=== PATIENT | male | born 1990 | race African-American/Black ===

== ENCOUNTER 2016-07-11 02:15 | Emergency (ER) | payer OTHER ==
[2016-07-11 02:22] VITALS: BP 145/92
[2016-07-11 02:42] LABS: BILIRUBIN,URINE NEGATIVE (NEGATIVE); UA CHARGE (STRIP ONLY) YES; UR CULTURE IF IND NOT INDICATED
[2016-07-11] MEDS ORDERED: AZITHROMYCIN 250 MG TABLET PO STA (03:01)
[2016-07-11] MEDS ORDERED: cefTRIAXone 250 MG VIAL IM STA (03:01)
--- NOTE | 2016-07-11 03:04 | ED Physician Documentation ---
PD HPI MALE - Stated complaint Stated Complaint: MALE - Chief complaint Chief Complaint: Abd Pain - History obtained from History obtained from: Patient - History of Present Illness Timing - onset: Today Timing - duration: Hours Timing - details: Gradual onset, Still present Associated symptoms: Dysuria. No: Discharge, Genital sore / lesion, Testiclar pain, Scrotal swelling, Back pain PD HPI MALE CONTRIB FACTORS: Sexually active (single partner X 3 months.) Similar symptoms before: Diagnosis (urethritis) Recently seen: Not recently seen - Additional information Additional information: 26 y/o male has had symptoms today of urinary pain. He drank extra fluid and this improved only to hurt again this evening. He has a single partner and does not suspect STD. He denies recent anal intercourse. Review of Systems Constitutional: denies: Fever, Chills, Myalgias, Fatigue : reports: Dysuria. denies: Frequency, Hesitancy, Unable to Void, Incontinent , Hematuria, Discharge, Testicular pain, Testicular mass Skin: denies: Rash Musculoskeletal: denies: Neck pain, Back pain, Extremity pain PD PAST MEDICAL HISTORY - Past Surgical History Past Surgical History: No - Present Medications Home Medications: Ambulatory Orders Medication Instructions Recorded Confirmed No Known Home Medications [No 07/11/16 07/11/16 Known Home Medications] - Allergies Allergies/Adverse Reactions: Allergies Allergy/AdvReac Type Severity Reaction Status Date / Time iodine AdvReac Unknown Unknown Verified 06/03/14 23:00 - Social History Does the pt smoke?: No Smoking Status: Never smoker Does the pt drink ETOH?: Yes Does the pt have substance abuse?: No - Immunizations Immunizations are current?: Yes - POLST Patient has POLST: No PD ED PE NORMAL - Vitals Vital signs reviewed: Yes (hypertensive ) - General General: Alert and oriented X 3, No acute distress, Well developed/nourished - HEENT HEENT: Atraumatic, PERRL - Respiratory Respiratory: No respiratory distress - Male Male : Other (There is no discharge or erythema to the portion of the urethra visible on exam. There are no leasions no adenopathy and no testicular tenderness. ) - Derm Derm: Normal color, Warm and dry, No rash - Extremities Extremities: No deformity, No edema - Neuro Neuro: No motor deficit, No sensory deficit - Psych Psych: Normal mood, Normal affect Results - Vitals Vitals: Vital Signs - 24 hr 07/11/16 02:18 Temperature 36.6 C Heart Rate 73 Respiratory 16 Rate Blood Pressure 145/92 H O2 Saturation 98 Oxygen O2 Source Room air - Labs Labs: Laboratory Tests 07/11/16 02:40 Urine Color LT. YELLOW Urine Clarity CLEAR Urine pH 7.0 Ur Specific [place] <=1.005 Urine Protein NEGATIVE Urine Glucose (UA) NEGATIVE Urine Ketones NEGATIVE Urine Occult Blood NEGATIVE Urine Nitrite NEGATIVE Urine Bilirubin NEGATIVE Urine Urobilinogen 0.2 (NORMAL) Ur Leukocyte Esterase NEGATIVE Ur Microscopic Review NOT INDICATED Urine Culture Comments NOT INDICATED PD MEDICAL DECISION MAKING - ED course Complexity details: considered differential, d/w patient ED course: 26 y/o male with urethral symptoms again without suspicion of STD is treated for STD after a urethral swab is obtained. The prior visits were with urine tests. He is given zithromax 1gm PO and rocephin 250mg IM. Departure - Departure Disposition: 01 Home, Self Care Clinical Impression: Urethritis Instructions: ED Urethritis Infec Vs Inflam Male Follow-Up: DANIE García [Provider Group] Comments: Today you have been treated for STD. A culture is pending and results will be available in 2 days. Today in the Emergency Department your blood pressure was elevated. This can happen from the stress of the visit itself, from a current illness or circumstance or from uncontrolled hypertension. If you take blood pressure medications take your usual mediations, have your blood pressure re-checked in an appropriate setting and follow up any elevation with your primary care doctor.
[2016-07-11] MEDS ORDERED: AZITHROMYCIN 250 MG TABLET PO ONE (03:06)
[2016-07-11] MEDS ORDERED: LIDOCAINE 1% 2 ML VIAL ONE (03:07)
[2016-07-11] MEDS ORDERED: cefTRIAXone 250 MG VIAL ONE (03:07)
== END 2016-07-11 03:16 | disposition home or self-care (01) ==
LOC: ED 02:15
DX: N34.2 Other urethritis (principal)
CPT/HCPCS: 81003; 96372; 99283; A9270; 81001; 87086; 87491; 87591

== ENCOUNTER 2016-07-13 00:48 | Emergency (ER) | payer OTHER ==
[2016-07-13 00:54] VITALS: BP 143/99
[2016-07-13 02:14] LABS: BILIRUBIN,URINE NEGATIVE (NEGATIVE)
[2016-07-13 02:18] LABS: UA CHARGE (STRIP ONLY) YES; UR CULTURE IF IND NOT INDICATED
--- NOTE | 2016-07-13 04:04 | ED Physician Documentation ---
PD HPI MALE - Stated complaint Stated Complaint: MALE - Chief complaint Chief Complaint: General - History obtained from History obtained from: Patient - History of Present Illness Timing - onset: How many days ago (2-3) Timing - details: Abrupt onset, Intermittant Associated symptoms: Dysuria. No: Urinary frequency, Discharge Similar symptoms before: Diagnosis (urethritis) Recently seen: Emergency Dept (T+R for same symptoms 07/11/16, given IM ceftriaxone and PO zithromax, his UA was unremarkable as was his GC/C. returns due to worsening of symptoms; he has burning, only with urination, initially was towards end of urination but now throughtout urination and persists for several minutes afterwards) Review of Systems Constitutional: denies: Fever, Chills, Sweats GI: denies: Abdominal Pain, Nausea, Vomiting : reports: Dysuria. denies: Frequency, Hematuria, Discharge, Testicular pain PD PAST MEDICAL HISTORY - Past Surgical History Past Surgical History: No - Present Medications Home Medications: Ambulatory Orders Medication Instructions Recorded Confirmed Phenazopyridine [Pyridium] 200 mg PO TID 3 Days 07/13/16 - Allergies Allergies/Adverse Reactions: Allergies Allergy/AdvReac Type Severity Reaction Status Date / Time iodine AdvReac Unknown Unknown Verified 07/13/16 00:54 - Social History Does the pt smoke?: No Smoking Status: Never smoker Does the pt drink ETOH?: Yes Does the pt have substance abuse?: No - Immunizations Immunizations are current?: Yes - POLST Patient has POLST: No PD ED PE NORMAL - Vitals Vital signs reviewed: Yes - General General: Alert and oriented X 3, No acute distress, Well developed/nourished - Abdomen Abdomen: Soft, Non tender - Back Back: No CVA TTP Results - Vitals Vitals: Oxygen O2 Source Room air - Labs Labs: Laboratory Tests 07/13/16 01:55 Urine Color YELLOW Urine Clarity CLEAR Urine pH 6.0 Ur Specific [place] <=1.005 Urine Protein NEGATIVE Urine Glucose (UA) NEGATIVE Urine Ketones NEGATIVE Urine Occult Blood NEGATIVE Urine Nitrite NEGATIVE Urine Bilirubin NEGATIVE Urine Urobilinogen 0.2 (NORMAL) Ur Leukocyte Esterase NEGATIVE Ur Microscopic Review NOT INDICATED Urine Culture Comments NOT INDICATED PD MEDICAL DECISION MAKING - ED course Complexity details: reviewed old records, reviewed results, considered differential, d/w patient ED course: UA is again unremarkable. No treatment beyond pyridium at this time Departure - Departure Disposition: 01 Home, Self Care Clinical Impression: Dysuria Condition: Good Instructions: ED Dysuria Uncertain Cause Follow-Up: DANIE García [Provider Group] Prescriptions: Phenazopyridine [Pyridium] 200 mg PO TID 3 Days Discharge Date/Time: 07/13/16 05:07
[2016-07-13] MEDS ORDERED: PHENAZOPYRIDINE 100 MG TABLET PO STA (04:22)
[2016-07-13] MEDS ORDERED: PHENAZOPYRIDINE 100 MG TABLET PO ONE (04:27)
== END 2016-07-13 05:07 | disposition home or self-care (01) ==
LOC: ED 00:48
DX: R30.0 Dysuria (principal)
CPT/HCPCS: 81003; 99283; A9270; 81001; 87086